=== PATIENT | female | born 2005 | race Caucasian/White ===

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

== ENCOUNTER 2024-07-29 03:05 | Emergency (ER) | payer BC ==
[~2024-07-29] VITALS: Ht 167.6 cm; Wt 61.2 kg
[~2024-07-29 03:05] MED LIST changes: -KETOROLAC TROMETHAMINE 15 MG/ML VIAL ONE; -KETOROLAC TROMETHAMINE INJ 30 MG/ML VIAL IV ONE; -ONDANSETRON HCL/PF 4 MG/2 ML VIAL IVP ONE; -ONDANSETRON HCL/PF 4 MG/2 ML VIAL ONE
[2024-07-29] MEDS ORDERED: dexaMETHasone SOD PHOSPHATE 1 ML ONE (03:48)
[2024-07-29] MEDS ORDERED: diphenhydrAMINE HCL 50 MG/ML VIAL ONE (03:48)
[2024-07-29] MEDS ORDERED: FAMOTIDINE/PF INJ 20 MG/2 ML VIAL IV ONE (03:48)
[2024-07-29] MEDS: FAMOTIDINE/PF INJ 20 MG/2 ML VIAL IV ONE (03:49)
[2024-07-29] MEDS: diphenhydrAMINE HCL 50 MG/ML VIAL IV ONE (03:49)
[2024-07-29] MEDS: dexaMETHasone SOD PHOSPHATE 10 MG/ML VIAL IV ONE (03:49)
[2024-07-29 04:41] VITALS: BP 120/70; TEMP 98.1; O2SAT 98
== END 2024-07-29 04:42 | disposition home or self-care (01) ==
LOC: ER 03:19
DX: T78.49XA Other allergy, initial encounter (principal); F31.9 Bipolar disorder, unspecified; Z79.1 Long term (current) use of non-steroidal anti-inflammatories (NSAID); X58.XXXA Exposure to other specified factors, initial encounter
CPT/HCPCS: 99284; 96374; 96375; J1100; J1200; J3490